=== PATIENT | female | born 1955 | race Caucasian/White ===

== ENCOUNTER 2021-08-21 12:00 | Emergency (ER) | payer MEDICARE, SELFPAY ==
--- NOTE | ~2021-08-21 | XR_ITS ---
EXAMINATION: XR CHEST CLINICAL INFORMATION: Cough, Covid positive COMPARISON: 10/09/2011 TECHNIQUE: 2 views of the chest were obtained. FINDINGS: Heart size is within normal limits. There is a calcified nodular opacity projecting in the right upper lobe, measuring up to 2.1 cm. There is suggestion of subtle prominence of the osseous structures in this area on the prior radiograph, but now appears somewhat larger and more discrete. This is not evident on the lateral view. Remainder of the lung yeager are clear. No consolidation. No pleural effusion or pneumothorax. Multilevel degenerative changes of the spine. No acute osseous abnormality. XR/XR chest 2V IMPRESSION: No focal consolidation. Calcified nodular opacity in the region of the right upper chest as above, which may represent overlapping of osseous structures. However, an underlying pulmonary nodule is also a consideration. If clinically indicated, a nonemergent chest CT may be obtained for further evaluation.
[2021-08-21 12:15] VITALS: BP 154/71; PULSE 90; RESP 16; TEMP 36.8; O2SAT 97; BMI 38.7
[2021-08-21 15:38] VITALS: BP 131/80; PULSE 75; RESP 16; TEMP 37.3; O2SAT 98
--- NOTE | 2021-08-21 16:13 | ED_ITS ---
HPI - URI/Sore Throat General Chief Complaint: Upper Respiratory Symptoms Stated Complaint: DIFF BREATHING COVID + Time Seen by Provider: 08/21/21 15:47 Source: patient Mode of arrival: ambulatory Limitations: no limitations History of Present Illness HPI Narrative: 66-year-old female who presents emergency department for evaluation of fever, chills, cough, diarrhea, fatigue, headache. Patient states that her symptoms started on Sunday (7 days prior to evaluation). She states that her grandson tested positive for COVID-19 on Sunday, she then did a home test on Sunday but did not test positive until (4 days prior to evaluation). She states that she has a cough which was nonproductive but over the past 1-2 days she has been coughing up thin, pink sputum and small amounts. She denied pleuritic chest pain, shortness of breath, dyspnea on exertion. She states that she has loose diarrheal stools and feels very fatigued. She also is complaining of a headache. She denied loss of sense of taste or smell, myalgias arthralgias. MD elicited complaint: fever, cough and other (COVID-19 positive) Onset (ago): week(s) (6) Consistency: constant Severity: mild Description of mucous: other (Thin, pink tinged) Able to tolerate fluids by mouth: Yes Exacerbating factors: nothing Context: sick contacts (Grandson tested positive for COVID-19 1 week prior) Related Data Allergies Allergy/AdvReac Type Severity Reaction Status Date / Time Iodinated Contrast Media Allergy Severe Anaphylaxis Verified 08/21/21 12:14 [IV Dye, Iodine Containing Contrast ] Sulfa (Sulfonamide Allergy Severe RASH Verified 08/21/21 12:14 Antibiotics) [SULFA(SULFONAMIDE ANTIBIOTICS)] amoxicillin [From Augmentin] Allergy Vomiting Verified 08/21/21 12:14 clavulanic acid Allergy Vomiting Verified 08/21/21 12:14 [From Augmentin] Review of Systems Review of Systems: Yes all other systems are reviewed and are negative [facility] Past Medical History [facility] Narrative: Past medical history: Hypertension, hyperlipidemia, asthma. Past surgical history: Bilateral total knee replacement. Social history: She denies tobacco use, she has never smoke cigarettes, she drinks 1-2 glasses of wine per week, she denies drug use. The patient works as a nurse practitioner in psychiatry. Surgical History (Updated 08/21/21 @ 12:18 by Jeannie Burgos) H/O: hysterectomy Total knee replacement status Social History Social History Advance Directives: Yes Advance Directives Information Provided: Yes Advance Directives on File: No Physical Exam Vital Signs: Vital Signs: Last Vital Signs Temp 99.1 F 08/21/21 15:38 Pulse 75 08/21/21 15:38 Resp 16 08/21/21 15:38 BP 131/80 08/21/21 15:38 Pulse Ox 98 08/21/21 15:38 BMI result Body Mass Index 38.7 Const: General: cooperative, no acute distress, well developed, alert and awake Orientation/consciousness: oriented to person HEENT: Head: Yes normal to inspection, Yes normocephalic and Yes atraumatic Ears: hearing grossly normal bilaterally General nose exam: Normal external nose present Face and sinus: Yes normal facial exam Mouth: Normal oral and palatal mucosa present, lip normal, tongue normal, oropharynx normal and moist mucous membranes Throat: Yes posterior oropharynx normal, Yes tonsils normal and Yes uvula midline Eyes: General: appearance normal, both eyes and all related structures Eyelids: Yes eyelids normal Conjunctivae: conjunctivae normal Sclerae: sclerae normal Corneas: corneas normal Pupils: Equal, round and reactive pupils present Neck: Neck: Yes normal visual inspection, Yes no lymphadenopathy, Yes trachea midline and Yes supple Thyroid: Thyroid normal Lymphatic: no lymphadenopathy noted Chest: Chest palpation & inspection: normal inspection of the chest and normal palpation of entire chest wall Resp: Effort & Inspection: normal respiratory effort and able to speak in com plete sentences Auscultation: clear to auscultation bilaterally Cardio: Rate: regular rate Rhythm: regular rhythm Heart sounds: S1 normal heart sound present, S2 normal heart sound present and no murmurs GI: Inspection: Yes normal to inspection Palpation (GI): Soft to palpation, nontender and No hepatosplenomegaly present Auscultation: normal bowel sounds : General: Yes no CVA tenderness Back/Spine/Pelvis: Back: no CVA tenderness Thoracic/Lumbar Spine: thoracic and lumbar spine normal to inspection Skin: General skin exam: no rashes or lesions noted, no erythema and no jaundice Lesions: no lesions Rashes: no rashes Trauma: no lacerations or abrasions Wounds: no wounds Neuro: General: oriented to person, moves all extremities and no focal motor deficits Cranial nerves: Yes Equal, round and reactive pupils present Cognition (Neuro): normal cognition Extrem: General: Yes normal to inspection, Yes no pedal edema and Yes no calf tenderness Right upper extremity: normal to inspection Right lower extremity: normal to inspection Left lower extremity: normal to inspection Psych: Appearance: grossly normal Mental Status: mental status grossly normal Speech and movement: Normal speech and movement present Affect: normal affect Attitude: cooperative Course Course Course Narrative: 66-year-old female who presents emergency department for evaluation of COVID-19 infection times 7 days. Patient has had no pleuritic chest pain, shortness of breath or dyspnea on exertion. Vital signs did reveal that she was slightly hypertensive at 157/71. O2 saturation was 97-98% on room air which is reassuring. The patient has received 2 Moderna vaccinations +the booster vaccination which is also reassuring. The patient's PCP is set her up for monoclonal therapy tomorrow. Patient's chest x-ray revealed no pneumonia. There was an incidental right upper lobe calcified pulmonary nodule. I did discuss this with the patient. The patient was discharged with printed and verbal instructions. Discharge Plan Discharge Clinical Impression: COVID-19 virus infection, Incidental pulmonary nodule Patient Disposition: Home, Self-Care Instructions: Pulmonary Nodules (ED) Additional Instructions: Your O2 saturation was normal at 98%, this is reassuring, we get concerned and COVID-19 infections when your O2 saturation drops below 88%. Your chest x-ray revealed no pneumonia but there was an incidental right upper lobe pulmonary nodule noted. Please see the radiologist report below. You should discuss this with your doctor and consider getting a repeat chest x- ray or CT scan of your chest in 3 months or sooner if your doctor thinks it would be necessary. Take ibuprofen 200 mg pills, 3 pills every 6 hours as needed for pain or fever Take Tylenol (acetaminophen) 500 mg pills, 2 pills every 4 to 6 hours as needed for pain or fever. Keep your monoclonal antibody appointment tomorrow, I think that you would benefit from this treatment. Follow-up with your doctor in 2 days. Please return to the emergency department if your symptoms get worse or if you develop any symptoms that are concerning to you. EXAMINATION: XR CHEST CLINICAL INFORMATION: Cough, Covid positive COMPARISON: 10/09/2011 TECHNIQUE: 2 views of the chest were obtained. FINDINGS: Heart size is within normal limits. There is a calcified nodular opacity projecting in the right upper lobe, measuring up to 2.1 cm. There is suggestion of subtle prominence of the osseous structures in this area on the prior radiograph, but now appears somewhat larger and more discrete. This is not evident on the lateral view. Remainder of the lung yeager are clear. No consolidation. No pleural effusion or pneumothorax. Multilevel degenerative changes of the spine. No acute osseous abnormality. XR/XR chest 2V IMPRESSION: No focal consolidation. Calcified nodular opacity in the region of the right upper chest as above, which may represent overlapping of osseous structures. However, an underlying pulmonary nodule is also a consideration. If clinically indicated, a nonemergent chest CT may be obtained for further evaluation. Dictated By:Kelly Dumas MDSigned By:<Electronically signed by Kelly Dumas MD in [place]>08/21/21 152
== END 2021-08-21 16:36 | disposition home or self-care (01) ==
PROVIDERS: Emergency Provider Emergency Medicine Emergency Medical Services; PCP Internal Medicine
DX: U07.1 COVID-19 (principal); R91.1 Solitary pulmonary nodule; I10 Essential (primary) hypertension; J45.909 Unspecified asthma, uncomplicated; Z96.653 Presence of artificial knee joint, bilateral; Z88.0 Allergy status to penicillin; Z88.2 Allergy status to sulfonamides
CPT/HCPCS: 71046; 99283

== ENCOUNTER 2023-02-09 10:11 | Day surgery (SDC) | payer MEDICARE, SELFPAY ==
[2023-02-09 11:00] VITALS: BP 141/83; PULSE 80; RESP 16; TEMP 36.1; O2SAT 99; BMI 38.0
--- NOTE | 2023-02-09 11:25 | HO.ANESPROP2 ---
Documented by User: Nighat Small MD 02/09/23 12:11 HPI - Anesthesia Eval Consult details Narrative: 67 yo female patient for Colonoscopy PMFSH Active Problems Active Problems: All Active Problems (Updated 02/09/23 @ 11:48 by Nighat Small MD) GERMAN. On CPAP HTN Asthma. Inhalers prn Anxiety. On citalopram Past Medical History Medical History GERMAN on CPAP HTN (hypertension) Acne GERD (gastroesophageal reflux disease) Asthma HLD (hyperlipidemia) Anxiety Family History Family history of problems with anesthesia: No Surgical History Surgical History H/O colonoscopy H/O: hysterectomy Total knee replacement status History of Problems with Anesthesia: No Social History Social History Advance Directives: No Advance Directives Information Provided: Yes Meds Allergies Allergy/AdvReac Type Severity Reaction Status Date / Time Iodinated Contrast Media Allergy Severe Anaphylaxis Verified 08/21/21 12:14 [IV Dye, Iodine Containing Contrast ] Sulfa (Sulfonamide Allergy Severe RASH Verified 08/21/21 12:14 Antibiotics) [SULFA(SULFONAMIDE ANTIBIOTICS)] amoxicillin [From Augmentin] Allergy Vomiting Verified 08/21/21 12:14 benzonatate Allergy Unknown Verified 02/08/23 10:24 [From Tessalon Perles] clavulanic acid Allergy Vomiting Verified 08/21/21 12:14 [From Augmentin] indomethacin [From Indocin] Allergy Unknown Verified 02/08/23 10:24 Home Medications Medication Instructions Recorded Confirmed Last Taken Type atorvastatin 40 mg tablet 40 mg PO DAILY 02/08/23 02/08/23 Unknown History metoprolol succinate 50 mg 50 mg PO DAILY 02/08/23 02/08/23 Unknown History tablet,extended release 24 hr omeprazole 02/08/23 Unknown History spironolactone 50 mg tablet 50 mg PO DAILY 02/08/23 02/08/23 Unknown History zolmitriptan 2.5 mg tablet PO 02/08/23 02/08/23 Unknown History Exam Airway Mallampati Class: III TM Dist: >3cm Neck ROM: Full Loose/Missing/Broken Teeth: No (Denies broken, loose, missing teeth) Heart: RRR Lungs: CTAB Assessment and Plan Assessment Anesthesia Assessment: Anesthesia Plan Discussed and Chart Reviewed Final Anesthetic Review Family History of Problems with Anesthesia: No History of Problems with Anesthesia: No NPO: Yes ASA Class: III Final Preanesthetic Review: No Changes in Pt Med Stat, Meds/Allgs Chart Reviewed, Consent Obtained/Reviewed and Anes Risks/Benef Reviewed Patient Risk: Intermediate Procedure Risk: Low Assessment/Block/Sedation in SS: Assess/Block/Sedation-SS Anesthetic Plan Anesthetic Plan: MAC: Disposition: Standard PACU Documented by User: Mandy Patrick MD PMF Active Problems Active Problems: All Active Problems (Updated 02/08/23 @ 10:24 by Dari Mcfadden) COVID-19 virus infection (Acute) Past Medical History Medical History GERMAN on CPAP HTN (hypertension) Acne GERD (gastroesophageal reflux disease) Asthma HLD (hyperlipidemia) Anxiety Surgical History Surgical History H/O colonoscopy H/O: hysterectomy Total knee replacement status Social History Social History Advance Directives: No Advance Directives Information Provided: Yes Meds Allergies Allergy/AdvReac Type Severity Reaction Status Date / Time Iodinated Contrast Media Allergy Severe Anaphylaxis Verified 08/21/21 12:14 [IV Dye, Iodine Containing Contrast ] Sulfa (Sulfonamide Allergy Severe RASH Verified 08/21/21 12:14 Antibiotics) [SULFA(SULFONAMIDE ANTIBIOTICS)] amoxicillin [From Augmentin] Allergy Vomiting Verified 08/21/21 12:14 benzonatate Allergy Unknown Verified 02/08/23 10:24 [From Tessalon Perles] clavulanic acid Allergy Vomiting Verified 08/21/21 12:14 [From Augmentin] indomethacin [From Indocin] Allergy Unknown Verified 02/08/23 10:24 Home Medications Medication Instructions Recorded Confirmed Last Taken Type atorvastatin 40 mg tablet 40 mg PO DAILY 02/08/23 02/08/23 Unknown History metoprolol succinate 50 mg 50 mg PO DAILY 02/08/23 02/08/23 Unknown History tablet,extended release 24 hr omeprazole 02/08/23 Unknown History spironolactone 50 mg tablet 50 mg PO DAILY 02/08/23 02/08/23 Unknown History zolmitriptan 2.5 mg tablet PO 02/08/23 02/08/23 Unknown History Exam Exam Date and Time: February 09, [id number] Height,Weight and Vital Signs: Height 5 ft 2 in Weight 94.347 kg Last Vital Signs Temp 97 F 02/09/23 11:00 Pulse 80 02/09/23 11:00 Resp 16 02/09/23 11:00 BP 141/83 H 02/09/23 11:00 Pulse Ox 99 02/09/23 11:00 O2 Del Method Room Air 02/09/23 11:00
--- NOTE | 2023-02-09 11:50 | MHC.SHP ---
Pre-Procedural Eval Section A Date of Service: 02/09/23 Section B Chief Complaint: Encounter for screening for malignant neoplasm of Details of Present Illness: see H&P no changes Relevant Family History (Specify if Yes): No Relevant Social History: None Present Medications: see Short Stay Collaborative assessment Medical History: No relevant PMH History of Previous Operations: No relevant previous surgery Allergies: Allergies Allergy/AdvReac Type Severity Reaction Status Date / Time Iodinated Contrast Media Allergy Severe Anaphylaxis Verified 08/21/21 12:14 [IV Dye, Iodine Containing Contrast ] Sulfa (Sulfonamide Allergy Severe RASH Verified 08/21/21 12:14 Antibiotics) [SULFA(SULFONAMIDE ANTIBIOTICS)] amoxicillin [From Augmentin] Allergy Vomiting Verified 08/21/21 12:14 benzonatate Allergy Unknown Verified 02/08/23 10:24 [From Tessalon Perles] clavulanic acid Allergy Vomiting Verified 08/21/21 12:14 [From Augmentin] indomethacin [From Indocin] Allergy Unknown Verified 02/08/23 10:24 Review of Systems Sugical H&P ROS: Negative: Constitution, Cardiovascular, Respiratory, Neurological, Psychiatric, Hem-Onc, Allergic/Immunologic, Gastrointestinal, Genitourinary, Musculoskeletal, Integumentary, Endocrine and Eyes/Ears/Nose/Throat Exam Surgical H&P Exam: Normal: HEENT, Normal: Heart, Normal: Lungs, Normal: Extremities, Normal: Abdomen, Normal: Skin and Normal: Neurological Plan Diagnosis/Plan: Unchanged I have reviewed the history and physical and performed a pertinent physical examination on my patient. No changes have occurred unless specified. Time Spent With Patient Time: Total time managing care of this patient today ____ minutes.
--- NOTE | 2023-02-09 12:24 | PM.OP ---
Brief Operative Note Date of Service: 02/09/23 Pre-op diagnosis: screening Post-op diagnosis: same Procedure: colonoscopy Surgeon: Luke Pate MD Anesthesia: MAC Was an Transactional Paralegal used for this Procedure?: No Estimated blood loss (mL): 2 Pathology: other Condition: stable Disposition: PACU
[2023-02-09 12:25] VITALS: BP 117/53; PULSE 75; RESP 20; TEMP 36.5; O2SAT 96
[2023-02-09 12:40] VITALS: BP 119/69; PULSE 71; RESP 20; TEMP 36.6; O2SAT 97
--- NOTE | 2023-02-09 12:45 | OP_ITS ---
DATE OF SERVICE: 02/09/2023 SURGEON: Luke Pate MD INDICATIONS: Colon cancer screening. PREOPERATIVE DIAGNOSIS: POSTOPERATIVE DIAGNOSIS: PROCEDURE PERFORMED: Colonoscopy to the terminal ileum with biopsy. ESTIMATED BLOOD LOSS: COMPLICATIONS: ANESTHESIA: Monitored anesthesia care. ASSISTANTS: SPECIMENS: DESCRIPTION OF PROCEDURE: A history and physical was performed. The risks and benefits of the procedure were explained to the patient. Informed consent was obtained. The patient was placed in the left lateral decubitus position. A digital rectal exam was performed and was found to be normal. The Olympus pediatric video colonoscope was introduced into the rectum and advanced to the cecum. The cecum was identified by transillumination, palpation, and identification of ileocecal valve. Examination was performed. The scope was removed. She tolerated the procedure well and was returned to the recovery area in stable condition. FINDINGS: The terminal ileum was examined and appeared normal. The visualized colonic mucosa within normal limits without evidence of masses or ulcers. The quality of the prep was good. At 65 cm was a less than 5 mm sessile polyp. This was removed using a biopsy forceps. No other polyps were identified. Retroflexed examination showed small internal hemorrhoids. IMPRESSION: Colon polyp. RECOMMENDATION: Follow up the biopsy results. MD SARAH Valles/ARLENEL / [id number]
== END 2023-02-09 13:12 | disposition home or self-care (01) ==
PROVIDERS: PCP Internal Medicine; Visit Provider Internal Medicine Gastroenterology
PROC: 0DJD8ZZ Inspection of Lower Intestinal Tract, Via Natural or Artificial Opening Endoscopic (ICD-10-PCS; CPT 45378; principal; 2023-02-09 11:30)
DX: Z12.11 Encounter for screening for malignant neoplasm of colon (principal); Z80.0 Family history of malignant neoplasm of digestive organs; D12.4 Benign neoplasm of descending colon; K64.8 Other hemorrhoids; K21.9 Gastro-esophageal reflux disease without esophagitis; I10 Essential (primary) hypertension; E78.00 Pure hypercholesterolemia, unspecified; J45.909 Unspecified asthma, uncomplicated; G47.33 Obstructive sleep apnea (adult) (pediatric); Z79.899 Other long term (current) drug therapy; Z88.2 Allergy status to sulfonamides; Z88.8 Allergy status to other drugs, medicaments and biological substances; Z91.041 Radiographic dye allergy status
CPT/HCPCS: 45380; 88305

== ENCOUNTER 2024-09-07 12:52 | Emergency (ER) | payer MEDICARE, SELFPAY ==
--- NOTE | 2024-09-07 12:53 | ECG_ITS ---
Test Reason : CP Blood Pressure : */* mmHG Vent. Rate : 101 BPM Atrial Rate : 101 BPM P-R Int : 156 ms QRS Dur : 76 ms QT Int : 324 ms P-R-T Axes : 48 48 23 degrees QTcB Int : 420 ms Sinus tachycardia Possible Left atrial enlargement Borderline ECG When compared with ECG of 13-Aug-2001 16:03, No significant change was found Referred By: Annie Sawyer Electronically Signed By: RADHA KEENE
[2024-09-07 12:57] VITALS: BP 126/85; PULSE 105; RESP 20; TEMP 37; O2SAT 100; BMI 30.2
--- NOTE | 2024-09-07 12:58 | ED.CHESTPAIN ---
HPI - Chest Pain General Chief Complaint: General Medical Stated Complaint: chest pain Time Seen by Provider: 09/07/24 15:37 Source: patient Mode of arrival: ambulatory Limitations: no limitations History of Present Illness ED Provider: Cecil Mistry PA-C HPI narrative: 69 yo female with history of HTN and HLD who presents to the ER for evaluation of nausea, vomiting and diarrhea that started at 5am today. Patient reports that she woke up at 05:00 not feeling well, she was lightheaded and developed diffuse diaphoresis before vomiting. She has had multiple episodes of nonbloody loose stools and nonbloody vomiting since then. She denies any associated abdominal pain. She reports she gets diaphoretic and nauseous before vomiting. She denies any associated chest pain or shortness of breath. No fever or chills. No urinary symptoms. She states she ate vegetable soup from [employer] last night for dinner that ?did not taste right. ? no one else ate the soup. She has not vomited in the last 3 hours and is starting to feel better aside from some generalized weakness due to recurrent vomiting. MD complaint: other (Nausea, vomiting, diarrhea, diaphoresis) Onset (ago): hour(s) Timing of current episode: episodic Onset: during rest Relieving factors: nothing Exacerbating factors: nothing Context: recent illness Associated symptoms: nausea, vomiting, diaphoresis and dyspnea Treatment prior to arrival: none Risk Factors Coronary artery disease risk factors: hyperlipidemia and hypertension Thoracic aortic dissection risk factors: none Related Data Home Medications ?Medication ?Instructions ?Recorded ?Confirmed atorvastatin 40 mg tablet 40 mg PO DAILY 02/08/23 02/08/23 metoprolol succinate 50 mg 50 mg PO DAILY 02/08/23 02/08/23 tablet,extended release 24 hr omeprazole 02/08/23 spironolactone 50 mg tablet 50 mg PO DAILY 02/08/23 02/08/23 zolmitriptan 2.5 mg tablet PO 02/08/23 02/08/23 Previous Rx's ?Medication ?Instructions ?Recorded ondansetron 4 mg disintegrating 4 mg PO Q8H PRN nausea and 09/07/24 tablet vomiting #7 tabs Allergies Allergy/AdvReac Type Severity Reaction Status Date / Time Iodinated Contrast Media Allergy Severe Anaphylaxis Verified 09/07/24 12:58 [IV Dye, Iodine Containing Contrast ] Sulfa (Sulfonamide Allergy Severe RASH Verified 09/07/24 12:58 Antibiotics) [SULFA(SULFONAMIDE ANTIBIOTICS)] amoxicillin [From Augmentin] Allergy Vomiting Verified 09/07/24 12:58 benzonatate Allergy Unknown Verified 09/07/24 12:58 [From Tessalon Perles] clavulanic acid Allergy Vomiting Verified 09/07/24 12:58 [From Augmentin] indomethacin [From Indocin] Allergy Unknown Verified 09/07/24 12:58 Review of Systems Review of Systems: Yes all other systems are reviewed and are negative [facility] Past Medical History Medical History GERMAN on CPAP HTN (hypertension) Acne GERD (gastroesophageal reflux disease) Asthma HLD (hyperlipidemia) Anxiety Surgical History H/O colonoscopy H/O: hysterectomy Total knee replacement status Social History Social History Advance Directives: No Advance Directives Information Provided: Yes Physical Exam Vital Signs: Vital Signs: Last Vital Signs Temp 98.3 F 09/07/24 16:03 Pulse 89 09/07/24 16:03 Resp 16 09/07/24 16:03 BP 109/41 L 09/07/24 16:03 Pulse Ox 97 09/07/24 16:03 O2 Del Method Room Air 09/07/24 16:03 BMI result Body Mass Index 30.2 Appearance: Alert. Oriented X3. No acute distress. Head: normocephalic, atraumatic. Eyes: Pupils equal, round and reactive to light. ENT: Pharynx normal. No tonsillar swelling or exudate. Neck: Normal inspection. Neck supple. CVS: Normal heart rate and rhythm. Pulses normal. Respiratory: No respiratory distress. Breath sounds normal. Abdomen: Soft and nontender. +BS x4 Skin: Skin warm and dry. Normal skin color. Normal skin turgor. No rashes. Extremities: No lower extremity edema. No joint swelling. Neuro/psych: Oriented X 3. No motor deficit. No sensory deficit. CN II-XII intact. Normal speech and cognition. Course Course Course Narrative: This is an RME: Additional HPI, ROS, PE not included below will be deferred to primary provider. RME assessment and note performed by: Annie Sawyer PA-C This is a [id number], with a past medical history of HTN, HLD, aortic anneursym, and seasonal allergies, who presents to the ER with complaints of not feeling right this morning. She awoke and felt diaphoresis, nauseous, weak and panicked. Reports that she then had vomiting and diarrhea for the next two hours. No hx of similar symptoms. Reports that she has vomited 6 times, last vomited at 1pm. No chest pain or jaw pain. Reports that she had a soup from [employer] that tasted odd. No sick contacts. No bloody or black stool. Plan:Labs, EKG, further ER eval needed. Medications Administered Discontinued Medications Generic Name Dose Route Start Last Admin Trade Name Freq PRN Reason Stop Dose Admin Lactated Ringer's 1,000 mls @ 999 mls/hr 09/07/24 15:45 09/07/24 17:07 Lr IV 09/07/24 16:45 Infused .Q1H1M BENITO Infusion Ondansetron HCl 4 mg 09/07/24 15:40 09/07/24 15:53 Ondansetron Hcl 4 Mg/2 Ml Vial IVPUSH 09/07/24 15:41 Not Given ONCE ONE Medical Decision Making Medical Decision Making [facility] Narrative: 69 yo female with history of HTN and HLD presenting for evaluation of N/V/D that started at 5am. she has had associated diaphoresis episodes before she vomits. no chest pain. EKG and negative troponin reassuring against cardiac process. no vomiting in several hours labs c/w mild dehydration. giving IVF and zofran. abd exam is benign given jacques umair and tolerating well feeling improved stable for d/c home with supportive care Differential Diagnosis Differential Diagnoses: The differential diagnosis associated with the presentation includes ACS, gastroenteritis, food poisoning, SD, dehydration Admission/Observation Consideration of admission/observation: Escalation of care including admission/observation considered Lab Data [facility] Lab Attestation statement: I reviewed the patient's lab results. leukocytosis likely reactive 2/2 vomiting, elevated H/H likely due to hemoconcentration 09/07/24 13:49 09/07/24 13:49 Labs: Lab Results 09/07/24 09/07/24 09/07/24 Range/Units 13:49 13:50 15:51 WBC 14.6 H (4.8-10.8) X10*3/uL RBC 5.48 (4.20-5.50) X10*6/uL Hgb 16.2 H (12.0-16.0) g/dl Hct 47.7 H (37.0-47.0) % MCV 87.0 (80.0-98.0) fL MCH 29.6 (27.0-33.0) pg MCHC 34.0 (31.0-35.0) g/dl RDW 13.3 (11.0-16.0) % Plt Count 222 (160-400) X10*3/uL MPV 10.5 (9.4-12.3) fL Immature Gran % (Auto) 0.3 (0.0-0.4) % Neut % (Auto) 89.2 H (45-73) % Lymph % (Auto) 7.1 L (20-40) % [place] % (Auto) 3.1 (2-11) % Eos % (Auto) 0.1 (0-4) % Baso % (Auto) 0.2 (0-2) % Lymph # (Auto) 1.0 L (1.2-4.9) X10*3/uL [place] # (Auto) 0.5 (0.1-1.2) X10*3/uL Eos # (Auto) 0.0 (0.0-0.4) X10*3/uL Baso # (Auto) 0.0 (0.0-0.2) X10*3/uL Abs Immat Gran (auto) 0.05 H (0.00-0.03) X10*3/uL Absolute Neuts (auto) 13.0 H (2.0-8.3) x10*3/uL Absolute Nucleated RBC 0.000 (0.0-0.012) X10*3/uL Nucleated RBC % (auto) 0.0 (0.0-0.2) /100WBC Sodium 138 (135-145) mmol/L Potassium 5.0 (3.3-5.1) mmol/L Chloride 110 H (96-108) mmol/L Carbon Dioxide 18 L (22-29) mmol/L Anion Gap 15 (12-20) BUN 22 H (9-16) mg/dL Creatinine 1.00 (0.5-1.4) mg/dL Estim Creat Clear Calc 59.1 Estimated GFR 55 Random Glucose 105 (60-115) mg/dL Calcium 9.9 (8.4-10.2) mg/dL Magnesium 2.0 (1.6-2.6) mg/dL Total Bilirubin 0.9 (0.0-1.0) mg/dL Direct Bilirubin 0.2 (0.0-0.5) mg/dL AST 28 (5-31) U/L ALT 27 (0-31) U/L Alkaline Phosphatase 128 H (39-117) U/L Troponin I High Sens < 2.7 (<3.5-17.0) ng/L Total Protein 7.8 (6.5-8.0) g/dL Albumin 4.4 (3.5-5.0) g/dL Lipase 13 (8-78) U/L Urine Color Dark Yellow Urine Appearance Cloudy Urine pH 5.5 (5.0-9.0) Ur Specific [place] >= 1.030 H (1.005-1.025) Urine Protein Trace (Neg-Trace) mg/dL Urine Glucose (UA) Negative (Negative) mg/dL Urine Ketones 15 (Negative) mg/dL Urine Blood Negative (Negative) Urine Nitrite Negative (Negative) Ur Leukocyte Esterase Trace H (Negative) Urine RBC 0-2 (0-2) /HPF Urine WBC 0-5 (0-5) /HPF Ur Squamous Epith Cells 11-20 (0-2) /HPF Urine Bacteria 2+ (None Seen) Hyaline Casts 11-20 (0-2) /LPF Influenza Type A (PCR) NEGATIVE (Negative) Influenza Type B (PCR) NEGATIVE (Negative) RSV RNA Qual (PCR) NEGATIVE (Negative) SARS-CoV-2 RNA (RT-PCR) NEGATIVE (Negative) Independent Interpretation I performed an independent interpretation of an: EKG Interpretation: sinus tachycardia, vent rate 101 bpm, normal QT interval, normal QTC, no ST segment elevations or depressions, no change from prior External Record Review External record reviewed: Prior outpatient radiology Tests considered The following testing was considered but not selected: CXR considered CT abd/pelvis considered - abd nontender Prescription Management I considered prescription management with: Other (antiemetic) Chronic Conditions Patient?s care impacted by: Hypertension Critical Care Time Critical Care Time Critical Care Time: No Discharge Plan Discharge Clinical Impression: Gastroenteritis Patient Disposition: Home, Self-Care Instructions: Gastroenteritis (DC) Additional Instructions: You lab workup today was unremarkable. Your urine test was negative for infection. You most likely have a viral GI bug also known as gastroenteritis. Treatment is supportive care, symptoms usually resolve on their own in 48-72 hours. Recommend rest and plenty of oral hydration. Stick to a bland diet like soup and toast while you are not feeling well. Take the prescribed medication as needed for nausea. Recommend over the counter Pepto Bismol or Imodium for upset stomach and diarrhea. Follow up with your doctor as needed. If you develop new or worsening symptoms call 911 or come back to the ER for further evaluation. Prescriptions: New ondansetron 4 mg tablet,disintegrating 4 mg PO Q8H PRN (Reason: nausea and vomiting) Qty: 7 0RF No Action atorvastatin 40 mg tablet 40 mg PO DAILY metoprolol succinate 50 mg tablet extended release 24 hr 50 mg PO DAILY zolmitriptan 2.5 mg tablet PO spironolactone 50 mg tablet 50 mg PO DAILY omeprazole Referrals: Yessy Lundy MD [Primary Care Provider] - Print Language: Spanish
[2024-09-07 13:56] LABS: MANUAL DIFF FLAG NO
[2024-09-07 13:58] LABS: Basophils Percent Auto 0.2 % (0-2); Eosinophils Percent Auto 0.1 % (0-4); Hematocrit 47.7 % (37.0-47.0); Hemoglobin 16.2 g/dl (12.0-16.0); Imm Gran Abs Auto 0.05 X10*3/uL (0.00-0.03); Imm Gran Pct Auto 0.3 % (0.0-0.4); Lymphocytes Percent Auto 7.1 % (20-40); Mean Corpuscular Hemoglobin 29.6 pg (27.0-33.0); Mean Platelet Volume 10.5 fL (9.4-12.3); Monocytes Absolute Auto 0.5 X10*3/uL (0.1-1.2); Monocytes Percent Auto 3.1 % (2-11); Neutrophils Percent Auto 89.2 % (45-73); Platelet Count 222 X10*3/uL (160-400); Red Blood Count 5.48 X10*6/uL (4.20-5.50); Red Cell Distribution Width 13.3 % (11.0-16.0); White Blood Count 14.6 X10*3/uL (4.8-10.8)
[2024-09-07 14:12] LABS: Alanine Aminotransferase 27 U/L (0-31); Albumin Level 4.4 g/dL (3.5-5.0); Alkaline Phosphatase 128 U/L (39-117); Anion Gap 15 (12-20); Aspartate Amino Transferase 28 U/L (5-31); Bilirubin Direct 0.2 mg/dL (0.0-0.5); Bilirubin Total 0.9 mg/dL (0.0-1.0); Blood Urea Nitrogen 22 mg/dL (9-16); Calcium 9.9 mg/dL (8.4-10.2); Carbon Dioxide 18 mmol/L (22-29); Chloride 110 mmol/L (96-108); Creatinine Clr Calc Pharmacy 59.1; Estimated Glomerular Filt Rate 55; Glucose Random 105 mg/dL (60-115); Lipase 13 U/L (8-78); Sodium 138 mmol/L (135-145); Total Protein 7.8 g/dL (6.5-8.0)
[2024-09-07 14:23] LABS: Troponin-I High Sensitivity < 2.7 ng/L (<3.5-17.0)
[2024-09-07 14:48] LABS: Influenza A PCR NEGATIVE (Negative); Influenza B PCR NEGATIVE (Negative); Resp Syncy Virus RNA Qual PCR NEGATIVE (Negative); SARS COV2 PCR INHOUSE NEGATIVE (Negative)
--- OUTSIDE RECORDS SUMMARY | 2024-09-07 15:45 | XMS_ITS ---
Author Name [facility] Organization Unknown Encounters Encounter Type Encounter Reason Primary Diagnosis Location Date Ambulatory [facility] 2024 Care Team Organization Name Specialty Phone Email Start Date End Da te [facility] 2024
[2024-09-07] MEDS: Lactated Ringers 1,000 ML 999 ML IV (15:53)
[2024-09-07 15:58] LABS: Appearance Urine Cloudy; Color Urine Dark Yellow; Glucose Urine UA Negative (Negative); Leukocyte Esterase Urine Trace (Negative); Nitrite Urine Negative (Negative); PH 5.5 (5.0-9.0); Specific Gravity - Urine >= 1.030 (1.005-1.025); UMIC TRIGGER UACC YES; Urine Blood Negative (Negative); Urine Ketones 15 mg/dL (Negative); Urine Protein Trace mg/dL (Neg-Trace)
[2024-09-07 16:03] VITALS: BP 109/41; PULSE 89; RESP 16; TEMP 36.8; O2SAT 97
[2024-09-07 16:20] LABS: Bacteria Urine 2+ (None Seen); RBC Urine 0-2 /HPF (0-2); WBC Urine 0-5 /HPF (0-5)
[2024-09-07 17:11] VITALS: BP 109/41; PULSE 89; RESP 16; TEMP 36.8; O2SAT 97
== END 2024-09-07 17:16 | disposition home or self-care (01) ==
PROVIDERS: Physician Assistant Medical; Emergency Provider Emergency Medicine; PCP Internal Medicine
DX: K52.9 Noninfective gastroenteritis and colitis, unspecified (principal); R07.89 Other chest pain; R11.2 Nausea with vomiting, unspecified; R42 Dizziness and giddiness; E86.0 Dehydration; R61 Generalized hyperhidrosis; I10 Essential (primary) hypertension; Z03.818 Encounter for observation for suspected exposure to other biological agents ruled out; Z79.899 Other long term (current) drug therapy
CPT/HCPCS: 0241U; 80048; 80076; 81001; 81003; 83690; 83735; 84484; 85025; 93005; 96360; 99284; J7120

== ENCOUNTER → 2024-09-07 12:53 | Outpatient (BNV) | payer MEDICARE, SELFPAY | PROVIDERS: Emergency Provider Emergency Medicine; PCP Internal Medicine; Visit Provider Internal Medicine | DX: R00.0 Tachycardia, unspecified (principal) | CPT/HCPCS: 93010 ==